=== PATIENT | male | born 1950 | race Caucasian/White ===

== ENCOUNTER 2017-08-09 08:31 | Day surgery (SDC) | payer MEDICARE, BC ==
[2017-08-04 09:24] VITALS: BMI 32.8
--- NOTE | 2017-08-09 01:42 | HP ---
HISTORY OF PRESENT ILLNESS: Mr. Wilson presents to us for referral from Dr. Chavarria for significant low back pain as well as radiating pain into the bilateral lower extremities in an L5 fashion. He al so does have anteromedial pain in the left thigh which may or may not be from a previous hip surgery as it came almost immediately after that procedure was completed in 2012. 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 PAST MEDICAL HISTORY: Significant for hypertension, hyperlipidemia, and a factor V Leiden deficiency . CURRENT MEDICATIONS: Hydrocodone, Xarelto, metoprolol, lisinopril, pravastatin, ferrous gluconate. ALLERGIES: To ZANAFLEX and GABAPENTIN. PAST SURGICAL HISTORY: Hip replacement, knee replacement and a lithotripsy. PHYSICAL EXAMINATION: The patient is alert and oriented x3. His gait is normal, no ataxia. Lower e xtremity motor exam is also normal. Reflexes are equal and present bilaterally at the patella. ASSESSMENT: Spondylolisthesis with pars defects and lumbar radiculopathy. PLAN: Discussed the case with Dr. Sams, he met with the patient, reviewed imaging and advocated for an L5-S1 fusion. He explained to the patient the risks, benefits, and alternatives to the procedure . The patient expressed understanding and would like to move forward with surgery as discussed. I d o believe the patient is mentally competent and capable of making medical decisions for himself. We will move forward with surgery as planned. Baltazar Patricia PA-C, dictating for Isidro Sams M.D.
[2017-08-09 09:57] LABS: #Eosinphils 0.1 thou/uL (0.0-0.7); #Lymphocytes 1.7 thou/uL (1.20-3.40); #Monocytes 0.5 thou/uL (0.11-0.59); %Basophils 0.5 % (0.0-1.0); %Eosinophils 2.2 % (0.0-10.0); %Lymphocytes 39.4 % (21.0-51.0); %Monocytes 11.1 % (0.0-10.0); Mean Platelet Volume 6.5 fL (7.4-10.4); Red Blood Cell (RBC) Count 4.38 mill/uL (4.70-6.10); White Blood Cell (WBC) Count 4.3 thou/uL (4.8-10.8)
[2017-08-09 10:16] LABS: Anion Gap 11 mmol/L (10-20); BUN (Urea Nitrogen) 16 mg/dL (8.4-25.7); Calc. Creatinine Clearance 97 mL/min (70-130); Calcium 9.4 mg/dL (7.8-10.44); Carbon Dioxide 26 mmol/L (23-31); Chloride 107 mmol/L (98-107); Estimated GFR-MDRD 66
[2017-08-09] MEDS ORDERED: CEFAZOLIN/Water 2 GM/20 ML SYRINGE ONE ×2 (10:19→15:58)
[2017-08-09] MEDS ORDERED: Fentanyl 250 MCG/5 ML VIAL ONE (11:01)
[2017-08-09] MEDS ORDERED: Bupivacaine/Epinephrine 0.25% 30 ML VIAL ONE (11:26)
[2017-08-09] MEDS ORDERED: Thrombin 5000 UNITS/5 ML VIAL ONE (11:26)
--- NOTE | 2017-08-09 13:47 | OP ---
DATE OF PROCEDURE: 08/09/2017 SURGEON: Isidro Sams M.D. TANKER TRUCK DRIVER: Baltazar Patricia PA-C INDICATION: Pain. DIAGNOSIS: L5-S1 spondylolisthesis with lumbar radiculopathy. PROCEDURES: Bilateral L5 medial facetectomy, foraminotomy, placement of allograft, and placement of autograft. ANESTHESIA: General. TECHNIQUE: The patient was brought into the operating room and placed under general anesthesia. He was flipped from a supine to a prone position on the operating room table. A linear incision was nik nned over the L5-S1 segment. After prepping and draping and after an appropriate operative pause, th e incision was created. The soft tissues were swept away from midline. A self-retaining retractor w as placed in the wound for optimal exposure. After confirming the appropriate level with C-arm fluor oscopy, a high-speed cutting drill bit as well as 2, 3 and 4 mm Kerrisons were used to perform nadja ctomy along the inferior aspect of L5 bilaterally. We also removed the superior aspect of S1. I per formed medial facetectomy bilaterally and performed foraminotomy over the exiting L5 nerve roots. Af ter decompressing the spine, I tried to move L5 with respect to S1 using Paul's and was unable to d o so. This led me to believe the patient was stable, and/or fused. Therefore, I made the decision n ot to perform an instrumented fusion. The wound was then irrigated. Hemostasis was maintained throu ghout. The wound was then closed in anatomic layers and a pressure dressing was applied. There were no known procedural complications.
[2017-08-09] MEDS ORDERED: Fentanyl 100 MCG/2 ML VIAL ONE ×2 (13:54→14:15)
[2017-08-09] MEDS ORDERED: Tamsulosin HCl 0.4 MG CAP ONE (14:03)
[2017-08-09] MEDS ORDERED: PHENYLEPHRINE-NS 100 MCG/ML 10 ML SYRINGE ONE (14:30)
[2017-08-09] MEDS ORDERED: Dexamethasone 20 MG/5 ML VIAL ONE (14:30)
[2017-08-09] MEDS ORDERED: ePHEDrine/0.9% NaCl/PF SYRINGE 50 mg/10 ml ONE (14:30)
[2017-08-09] MEDS ORDERED: Ondansetron HCl/PF 4 MG/2 ML Vial ONE (14:30)
[2017-08-09] MEDS ORDERED: Glycopyrrolate 0.2 MG/ML 5 ML SYRINGE ONE (14:30)
[2017-08-09] MEDS ORDERED: Propofol 200 MG/20 ML VIAL ONE (14:30)
[2017-08-09] MEDS ORDERED: Lidocaine 1% PF 5 ML VIAL ONE (14:30)
[2017-08-09] MEDS ORDERED: Morphine 4 MG/ML VIAL ONE (14:56)
[2017-08-09] MEDS ORDERED: Acetaminophen/Codeine 30-300mg Tablet ONE (15:13)
== END 2017-08-09 16:15 | disposition home or self-care (01) ==
LOC: SDC 08:31
PROVIDERS: ATTEND Neurological Surgery
PROC: 00NY0ZZ Release Lumbar Spinal Cord, Open Approach (ICD-10-PCS; principal; 2017-08-09)
DX: M43.16 Spondylolisthesis, lumbar region (principal); M54.16 Radiculopathy, lumbar region; I10 Essential (primary) hypertension; E78.5 Hyperlipidemia, unspecified; Z88.8 Allergy status to other drugs, medicaments and biological substances; Z88.1 Allergy status to other antibiotic agents; Z79.01 Long term (current) use of anticoagulants; Z96.649 Presence of unspecified artificial hip joint; Z96.659 Presence of unspecified artificial knee joint; Z98.890 Other specified postprocedural states
CPT/HCPCS: 36415; 76001; 80048; 85025; 93005; 93010; 96374; J1100; J2001; J2270; J2405; J2704; J3010

== ENCOUNTER 2020-09-16 12:13 | Outpatient (CLI) | payer MEDICARE, BC ==
[2020-09-17 06:32] LABS: SARS-CoV-2 MS2 Positive; SARS-CoV-2 N Gene Negative; SARS-CoV-2 S Gene Negative; SARS-CoV-2 by NAA Not Detected (NotDetected); SARS-CoV-2 orf1ab Negative
== END 2020-09-16 12:14 | disposition home or self-care (01) ==
LOC: LABBT 12:13
PROVIDERS: ATTEND Neurological Surgery
DX: Z01.818 Encounter for other preprocedural examination (principal); Z01.812 Encounter for preprocedural laboratory examination; M43.16 Spondylolisthesis, lumbar region; Z20.822 Contact with and (suspected) exposure to COVID-19
CPT/HCPCS: 93005; U0003; 87635; 93010

== ENCOUNTER 2020-09-18 06:50 | Day surgery (SDC) | payer MEDICARE, BC ==
[2020-09-11 15:27] VITALS: BMI 38.0
--- NOTE | 2020-09-18 00:01 | HP ---
HISTORY OF PRESENT ILLNESS: Mr. Wilson is here today to discuss his lower back pain. He is known to us for prior evaluation and surgery for lower back problems and actually came back last year and met with Dr. Sams, who initially had made recommendations for lumbar fusion. At that time, the patient decided to continue to take conservative approach in the form of pain management, that has reached a point now, where he preferred to go ahead and move forward with the prior surgical recommendation. PAST MEDICAL HISTORY: Significant for chronic pain syndrome, hypercholesterolemia, osteoarthritis, and hypertension. PAST SURGICAL HISTORY: Appendectomy, hip replacement, lumbar decompression, tonsillectomy, knee replacement, and unspecified elbow surgery. CURRENT MEDICATIONS: 1. Dustin. 2. Pravastatin. 3. Metoprolol. 4. Eliquis. 5. Lisinopril. 6. Tamsulosin. ALLERGIES: NO KNOWN DRUG ALLERGIES. PHYSICAL EXAMINATION: Exam is deferred for telehealth visit. ASSESSMENT: Lumbar radiculopathy, lower back pain. PLAN: Dr. Sams met with the patient, reviewed imaging, and advocated for L5-S1 facetectomy and fusion. He explained to the patient the risks, benefits, and alternatives to the procedure. The patient expressed understanding and elected to move forward with surgery as discussed. I do believe that the patient is mentally competent and capable of making medical decisions for himself. We will move forward with surgery as planned. Job ID: [id number]
[2020-09-18] MEDS ORDERED: Lidocaine 2% w/Epinephrine 1:200K 20 ML VIAL ONE (07:04)
[2020-09-18] MEDS ORDERED: Bupivacaine PF 0.5% 30 ML VIAL ONE (07:04)
[2020-09-18] MEDS ORDERED: Thrombin 5000 UNITS/5 ML VIAL ONE (07:05)
[2020-09-18] MEDS ORDERED: Clindamycin/D5W 900 mg/50 ml Premix Bag ONE (07:37)
[2020-09-18] MEDS ORDERED: Levofloxacin 500 mg/D5W 100 ml Premix Bag ONE (07:37)
[2020-09-18] MEDS ORDERED: Fentanyl 100 MCG/2 ML VIAL ONE (07:58)
[2020-09-18] MEDS ORDERED: Ondansetron PF 4 MG/2 ML Vial ONE (09:12)
[2020-09-18] MEDS ORDERED: Ketorolac Tromethamine 30 MG/ML VIAL ONE (09:12)
[2020-09-18] MEDS ORDERED: Glycopyrrolate 0.2 MG/ML 5 ML SYRINGE ONE (09:12)
[2020-09-18] MEDS ORDERED: Rocuronium Bromide 10 MG/ML (10ML VIAL) ONE (09:12)
[2020-09-18] MEDS ORDERED: ePHEDrine 50 MG/ML VIAL ONE (09:12)
[2020-09-18] MEDS ORDERED: Dexamethasone 20 MG/5 ML VIAL ONE (09:12)
[2020-09-18] MEDS ORDERED: diphenhydrAMINE 50 MG/ML VIAL ONE (09:12)
[2020-09-18] MEDS ORDERED: PHENYLEPHRINE-NS 100 MCG/ML 10 ML SYRINGE ONE (09:12)
[2020-09-18] MEDS ORDERED: PROPOFOL 200 MG/20 ML VIAL ONE (09:12)
[2020-09-18] MEDS ORDERED: Mineral Oil Sterile 10ML 10 ML UDCUP ONE (09:21)
[2020-09-18] MEDS ORDERED: Midazolam HCl 2 mg/2 ml Vial ONE (09:30)
[2020-09-18] MEDS ORDERED: HYDROcodone/Acetaminophen 5/325 mg Tablet ONE (11:30)
--- NOTE | 2020-09-19 11:35 | OP ---
DATE OF PROCEDURE: 09/18/2020 HIP HOP DANCER: Baltazar Patricia PA-C INDICATION: Pain. DIAGNOSES: Lumbar spondylolisthesis with lumbar radiculopathy and back pain. PROCEDURE PERFORMED: Reoperation of bilateral L5-S1 facetectomy, bilateral L5-S1 posterior lateral instrumented fusion, placement of allograft, and placement of autograft. ANESTHESIA: General. DESCRIPTION OF PROCEDURE: The patient was brought into the operating room and placed under general anesthesia. He was flipped from supine to prone position on the operating room table. A linear incision was planned over the L5-S1 segment. After prepping and draping and after an appropriate preoperative pause, the incision was created. The soft tissues were swept away from midline. Self-retaining retractors were placed in the wound for optimal exposure. After confirming the appropriate level with C-arm fluoroscopy, bone defects were identified from the patient's prior decompressive procedure. Laminectomy was performed bilaterally at L5-S1 until the pedicles could be palpated at L5 and S1 bilaterally. With the aid of C-arm fluoroscopy, pedicle screws were placed bilaterally at L5 and S1. An intraoperative 3D CT scan was performed to confirm appropriate placement of hardware. Rods were then placed across screw heads and final tightened. Allograft and autograft materials were placed in the lateral confines the instrumentation construct. The wound was irrigated. Hemostasis was maintained throughout. The wound was then closed in anatomic layers, and a pressure dressing was applied. There were no known procedural complications. Job ID: [id number]
== END 2020-09-18 13:05 | disposition home or self-care (01) ==
LOC: SDC 06:50
PROVIDERS: ATTEND Neurological Surgery
PROC: 0SG0071 Fusion of Lumbar Vertebral Joint with Autologous Tissue Substitute, Posterior Approach, Posterior Column, Open Approach (ICD-10-PCS; principal; 2020-09-18)
DX: M43.16 Spondylolisthesis, lumbar region (principal); M54.16 Radiculopathy, lumbar region; G89.4 Chronic pain syndrome; E78.00 Pure hypercholesterolemia, unspecified; M19.90 Unspecified osteoarthritis, unspecified site; I10 Essential (primary) hypertension; Z79.01 Long term (current) use of anticoagulants; Z79.899 Other long term (current) drug therapy; Z96.642 Presence of left artificial hip joint; Z96.652 Presence of left artificial knee joint; Z98.1 Arthrodesis status
CPT/HCPCS: 20930; 20936; 22612; 22840; 76000; C1713 ×4; C1768; J1100; J1200; J1885; J1956; J2250; J2405; J2704; J3010; J3490; S0020